=== PATIENT | male | born 1955 | race Caucasian/White ===

== ENCOUNTER 2020-06-11 06:07 | Day surgery (SDC) | payer MEDICARE ==
[~2020-06-11] VITALS: Ht 177.8 cm; Wt 86.0 kg
[~2020-06-11 06:07] MED LIST: CALC1.25T PO; CIPR500 PO; ERGO400 PO; MULVITB&C PO
--- NOTE | 2020-06-11 08:14 | NUR ---
06/11/20 0814 Esther Carrion 1 MG EPI ADDED TO EACH OF THE FIRST THREE BAGS OF LR FOR IRRIGATION.
== END 2020-06-11 10:01 | disposition home or self-care (01) ==
LOC: ORSCSDS 06:07
PROVIDERS: Orthopaedic Surgery
PROC: 0LQ14ZZ Repair Right Shoulder Tendon, Percutaneous Endoscopic Approach (ICD-10-PCS; principal; 2020-06-11 07:30)
PROC: 0RBJ4ZZ Excision of Right Shoulder Joint, Percutaneous Endoscopic Approach (ICD-10-PCS; principal; 2020-06-11 07:30)
PROC: 0LS30ZZ Reposition Right Upper Arm Tendon, Open Approach (ICD-10-PCS; principal; 2020-06-11 07:30)
PROC: 0RNJ4ZZ Release Right Shoulder Joint, Percutaneous Endoscopic Approach (ICD-10-PCS; principal; 2020-06-11 07:30)
DX: S46.101A Unspecified injury of muscle, fascia and tendon of long head of biceps, right arm, initial encounter (principal); M25.511 Pain in right shoulder; M75.41 Impingement syndrome of right shoulder; E11.9 Type 2 diabetes mellitus without complications; J45.909 Unspecified asthma, uncomplicated
CPT/HCPCS: 82947; C1713; J0171; J0690; J1100; J1885; J2370; J2405; J2704; J3010; J7120

== ENCOUNTER 2021-12-22 09:47 | Day surgery (SDC) | payer MEDICARE ==
[~2021-12-22] VITALS: Ht 177.8 cm; Wt 82.8 kg
[2021-12-22] MEDS ORDERED: LUPRON DEPOT22.5 M1 (10:15)
== END 2021-12-22 11:47 | disposition home or self-care (01) ==
LOC: ORSCSDS 09:47
PROVIDERS: Internal Medicine Gastroenterology
PROC: 0DJD8ZZ Inspection of Lower Intestinal Tract, Via Natural or Artificial Opening Endoscopic (ICD-10-PCS; principal; 2021-12-22 11:15)
DX: Z12.11 Encounter for screening for malignant neoplasm of colon (principal); Z86.010 Personal history of colon polyps; Z80.0 Family history of malignant neoplasm of digestive organs; K57.30 Diverticulosis of large intestine without perforation or abscess without bleeding; E11.9 Type 2 diabetes mellitus without complications
CPT/HCPCS: 82947; J2704; J7120

== ENCOUNTER 2025-08-01 03:00 | Day surgery (SDC) | payer MEDICARE ==
[2025-07-30 10:16] LABS: BASOPHILS ABSOLUTE AUTO 0.01 K/mm3 (0.00-0.23); BASOPHILS PERCENT AUTO 1 % (0-2); EOSINOPHILS ABSOLUTE AUTO 0.03 K/mm3 (0.00-0.68); EOSINOPHILS PERCENT AUTO 2 % (0-6); Hematocrit 20.2 % (37.0-53.0); Hemoglobin 6.7 g/dL (13.5-17.5); IMMATURE GRAN ABSOLUTE AUTO 0.09 K/mm3 (0.00-0.10); IMMATURE GRAN PERCENT AUTO 5 % (0-1); LYMPHOCYTES ABSOLUTE AUTO 0.72 K/mm3 (0.84-5.20); LYMPHOCYTES PERCENT AUTO 36 % (21-46); MONOCYTES ABSOLUTE AUTO 0.17 K/mm3 (0.16-1.47); MONOCYTES PERCENT AUTO 9 % (4-13); Mean Corpuscular HGB Conc 33.2 g/dL (31.5-36.5); Mean Corpuscular Volume 101 fL (80-100); NEUTROPHILS ABSOLUTE AUTO 0.98 K/mm3 (1.96-9.15); NEUTROPHILS PERCENT AUTO 49 % (41-73); NRBC ABSOLUTE 0.05 K/mm3 (0.00-0.02); NRBC Auto 2.5 /100 WBC (0.0-0.2); RDW Coefficient Variation 18.0 % (11.7-14.2); RDW Standard Deviation 66.5 fL (35.1-46.3)
[2025-07-30 10:23] LABS: Platelet Count 38 K/mm3 (150-400)
[2025-08-01] VITALS (8 sets, daily range): BP systolic 115–134; BP diastolic 49–75
[~2025-08-01 03:00] MED LIST changes: +LUPRON DEPOT22.5 M1
[2025-08-01] MEDS ORDERED: NS 250 ML IV SCH (07:00)
[2025-08-01] MEDS ORDERED: TRESIBA FL100 UNIT/2 SC (07:47)
== END 2025-08-01 11:46 | disposition home or self-care (01) ==
LOC: ATC 03:00 → LAB FUT 06-20 15:35 → EDSTATUS 06-20 15:35
PROVIDERS: Internal Medicine Hematology & Oncology
DX: C61 Malignant neoplasm of prostate (principal); C79.51 Secondary malignant neoplasm of bone; E11.9 Type 2 diabetes mellitus without complications; Z88.2 Allergy status to sulfonamides; Z88.6 Allergy status to analgesic agent; Z91.013 Allergy to seafood
CPT/HCPCS: 36415; 36430; 85025; 86850; 86900; 86901; 86923; J7050; P9016

== ENCOUNTER 2025-08-23 00:34 | Day surgery (SDC) | payer MEDICARE ==
[2025-08-20 09:16] LABS: BASOPHILS ABSOLUTE AUTO 0.00 K/mm3 (0.00-0.23); BASOPHILS PERCENT AUTO 0 % (0-2); EOSINOPHILS ABSOLUTE AUTO 0.04 K/mm3 (0.00-0.68); EOSINOPHILS PERCENT AUTO 2 % (0-6); Hematocrit 23.9 % (37.0-53.0); Hemoglobin 8.1 g/dL (13.5-17.5); IMMATURE GRAN ABSOLUTE AUTO 0.05 K/mm3 (0.00-0.10); IMMATURE GRAN PERCENT AUTO 2 % (0-1); LYMPHOCYTES ABSOLUTE AUTO 0.83 K/mm3 (0.84-5.20); LYMPHOCYTES PERCENT AUTO 34 % (21-46); MONOCYTES ABSOLUTE AUTO 0.15 K/mm3 (0.16-1.47); MONOCYTES PERCENT AUTO 6 % (4-13); Mean Corpuscular HGB Conc 33.9 g/dL (31.5-36.5); Mean Corpuscular Volume 98 fL (80-100); NEUTROPHILS ABSOLUTE AUTO 1.37 K/mm3 (1.96-9.15); NEUTROPHILS PERCENT AUTO 56 % (41-73); NRBC ABSOLUTE 0.03 K/mm3 (0.00-0.02); NRBC Auto 1.2 /100 WBC (0.0-0.2); RDW Coefficient Variation 17.1 % (11.7-14.2); RDW Standard Deviation 60.4 fL (35.1-46.3)
[2025-08-20 09:24] LABS: Platelet Count 40 K/mm3 (150-400)
[2025-08-20 09:44] LABS: Prostate Specific Antigen 1830.000 ng/mL (0.000-4.000)
[~2025-08-23 00:34] MED LIST changes: +TRESIBA FL100 UNIT/2 SC
[2025-08-23] MEDS ORDERED: NS 250 ML IV SCH (07:00)
[2025-08-23] MEDS ORDERED: THERA-D2000 UNIT PO (07:26)
[2025-08-23] MEDS ORDERED: VITAMIN K240 MCG PO (07:26)
[2025-08-23] MEDS ORDERED: MORP30 PO (07:28)
[2025-08-23 07:41] VITALS: BP 118/60
[2025-08-23 07:58] VITALS: BP 105/58
[2025-08-23 08:58] VITALS: BP 117/61
[2025-08-23 09:26] VITALS: BP 106/70
== END 2025-08-23 09:28 | disposition home or self-care (01) ==
LOC: ATC 00:34 → EDSTATUS 07:30 → ATC 09:28
PROVIDERS: Internal Medicine Hematology & Oncology
DX: C61 Malignant neoplasm of prostate (principal); D63.0 Anemia in neoplastic disease; E11.9 Type 2 diabetes mellitus without complications; J45.909 Unspecified asthma, uncomplicated; C79.51 Secondary malignant neoplasm of bone; Z79.899 Other long term (current) drug therapy; Z88.2 Allergy status to sulfonamides; Z88.8 Allergy status to other drugs, medicaments and biological substances; Z91.013 Allergy to seafood
CPT/HCPCS: 36415; 36430; 84153; 85025; 86850; 86900; 86901; 86923; J7050; P9016

== ENCOUNTER 2025-09-09 09:11 | Emergency (ER) | payer MEDICARE ==
[~2025-09-09] VITALS: Ht 175.3 cm; Wt 70.3 kg
[~2025-09-09 09:11] MED LIST changes: +MORP30 PO; +THERA-D2000 UNIT PO; +VITAMIN K240 MCG PO
[2025-09-09] MEDS ORDERED: Lidocaine 4% 1 Patch TOP ONE (09:30)
[2025-09-09] MEDS ORDERED: HYDROmorphone HCl/Pf 1MG SYR IV ONE (09:40)
[2025-09-09 10:05] LABS: BASOPHILS ABSOLUTE AUTO 0.01 K/mm3 (0.00-0.23); BASOPHILS PERCENT AUTO 0 % (0-2); EOSINOPHILS ABSOLUTE AUTO 0.01 K/mm3 (0.00-0.68); EOSINOPHILS PERCENT AUTO 0 % (0-6); Hematocrit 21.9 % (37.0-53.0); Hemoglobin 7.5 g/dL (13.5-17.5); IMMATURE GRAN ABSOLUTE AUTO 0.04 K/mm3 (0.00-0.10); IMMATURE GRAN PERCENT AUTO 2 % (0-1); LYMPHOCYTES ABSOLUTE AUTO 0.67 K/mm3 (0.84-5.20); LYMPHOCYTES PERCENT AUTO 25 % (21-46); MONOCYTES ABSOLUTE AUTO 0.18 K/mm3 (0.16-1.47); MONOCYTES PERCENT AUTO 7 % (4-13); Mean Corpuscular HGB Conc 34.2 g/dL (31.5-36.5); Mean Corpuscular Volume 95 fL (80-100); NEUTROPHILS ABSOLUTE AUTO 1.80 K/mm3 (1.96-9.15); NEUTROPHILS PERCENT AUTO 66 % (41-73); NRBC ABSOLUTE 0.02 K/mm3 (0.00-0.02); NRBC Auto 0.7 /100 WBC (0.0-0.2); RDW Coefficient Variation 17.7 % (11.7-14.2); RDW Standard Deviation 61.7 fL (35.1-46.3)
[2025-09-09 10:09] LABS: Platelet Count 32 K/mm3 (150-400)
[2025-09-09 10:24] LABS: Alanine Aminotransfer (ALT/SGP 13.0 U/L (12-78); Albumin, Blood 3.4 g/dL (3.4-5.0); Albumin/Globulin Ratio 1.0 (0.8-1.8); Anion Gap 19.0 mmol/L (3-11); Aspartate Aminotrans (AST/SGOT 39.0 U/L (12-37); Bilirubin, Total 0.7 mg/dL (0.1-1.0); Blood Urea Nitrogen 14.0 mg/dL (8-24); CO2, Blood 19.0 mmol/L (21-32); Calcium, Blood 9.0 mg/dL (8.5-10.1); Chloride, Blood 101.0 mmol/L (98-108); Creatinine, Blood 0.75 mg/dL (0.60-1.20); Globulin, Blood 3.5 g/dL (2.2-4.0); Glucose, Blood 146.0 mg/dL (70-99); Potassium, Blood 4.0 mmol/L (3.5-5.5); Sodium, Blood 135.0 mmol/L (136-145); Total Protein, Blood 6.9 g/dL (6.4-8.2)
[2025-09-09 11:54] LABS: Source, Urine Clean Catch
[2025-09-09 12:04] LABS: Bilirubin, Urine Neg (Neg); Glucose Qualitative, Urine Neg (Neg); Ketones, Urine 3+ (Neg); Leukocyte Esterase, Urine Neg (Neg); Protein, Urine 2+ (Neg); Specific Gravity, Urine 1.020 (1.003-1.022); Urobilinogen, Urine NORM (Normal)
[2025-09-09 12:29] LABS: Color, Urine Yellow (P-Yellow)
[2025-09-09 12:30] LABS: Red Blood Cells, Urine 0-2 /hpf (0-2); White Blood Cells, Urine 0-2 /hpf (0-5)
[2025-09-09] MEDS ORDERED: HYDMOR2 PO (12:43)
[2025-09-09 13:00] VITALS: BP 134/76
== END 2025-09-09 13:22 | disposition home or self-care (01) ==
LOC: ER 09:11
PROVIDERS: Emergency Medicine
DX: C61 Malignant neoplasm of prostate (principal); C79.51 Secondary malignant neoplasm of bone; M54.50 Low back pain, unspecified; E11.9 Type 2 diabetes mellitus without complications; Z88.2 Allergy status to sulfonamides; Z88.8 Allergy status to other drugs, medicaments and biological substances; Z79.2 Long term (current) use of antibiotics
CPT/HCPCS: 80053; 81001; 85025; 96374; 99284-25; A9270; J1171